=== PATIENT | female | born 1990 | race Caucasian/White ===

== ENCOUNTER 2018-02-04 17:11 | Emergency (ER) | payer BC ==
[2018-02-04 17:35] VITALS: BP 114/98; O2SAT 97
--- NOTE | 2018-02-04 17:59 | ED.PDOC ---
History of Present Illness - General Chief Complaint: [employer]CHIV[employer] Problem Stated Complaint: vaginal bleeding Time Seen by Provider: 02/04/18 17:41 Source: patient, RN notes reviewed Exam Limitations: no limitations - History of Present Illness Initial Comments: SHE IS A G2, P1, LMP ON 12/30. TODAY AT 1500 HRS SHE STARTED WITH VAGINAL BLEEDING AND WITH CRAMPS. BUT NOW THE BLEEDING HAS SUBSIDED. Timing/Duration: just prior to arrival Quality: moderate, cramping Onset Location: vaginal Radiation: suprapubic Activites at Onset: none Improving Factors: other - SPONTANEOSLY Allergies/Adverse Reactions: Allergies NO KNOWN ALLERGY Allergy (Verified 02/04/18 17:36) Home Medications: Ambulatory Orders Sertraline HCl [Zoloft] 50 mg PO DAILY #0 tab 09/05/12 Review of Systems - Review of Systems Constitutional: States: no symptoms reported EENTM: States: no symptoms reported Respiratory: States: no symptoms reported Cardiology: States: no symptoms reported Gastrointestinal/Abdominal: States: abdominal pain Genitourinary: States: other - VAGINAL BLEEDING Musculoskeletal: States: no symptoms reported Skin: States: no symptoms reported Neurological: States: no symptoms reported Hematologic/Lymphatic: States: no symptoms reported Past Medical History (General) - Patient Medical History Hx Seizures: No Hx Stroke: No Hx Dementia: No Hx Asthma: Yes Hx of COPD: No Hx Cardiac Disorders: No Hx Congestive Heart Failure: No Hx Pacemaker: No Hx Hypertension: No Hx Thyroid Disease: No Hx Diabetes: No Hx Gastroesophageal Reflux: No Hx Renal Disease: No Hx Cancer: No Hx of HIV: No Hx Hepatitis C: No Hx MRSA: No Surgical History: other - Vaccination History Hx Influenza Vaccination: No - Social History Hx Tobacco Use: Yes Hx Alcohol Use: No - Female History Patient is a Female of Child Bearing Age (10 -59 yrs old): Yes Hx Last Menstrual Period: 11/25/11 Patient : Yes Expected Date of Delivery:: 08/30/12 Family Medical History - Family History Mother Family History: Unknown Physical Exam - Physical Exam General Appearance: Alert, Well Developed, Well Groomed, Well Hydrated, Well Nourished Eyes, Ears, Nose, Throat Exam: PERRL/EOMI, normal ENT inspection, TMs normal Neck: non-tender, full range of motion, normal inspection Cardiovascular/Respiratory: regular rate, rhythm, normal peripheral pulses, no JVD, normal breath sounds Gastrointestinal/Abdominal: normal bowel sounds, soft, no organomegaly, no pulsatile mass Rectal Exam: deferred Pelvic Exam: external exam normal, other - the speculum exam has a small amount of blood in the vaginal vault. the cervix is closed. bimanual, no adnexan masses, uterues slighlty enlarged. Back Exam: normal inspection Extremity: normal range of motion, non-tender, normal inspection Neurologic: no motor/sensory deficits, alert Skin Exam: normal color Lymphatic: no adenopathy Progress - Results/Orders Results/Orders: 4 quant [facility] [place] IS 5500. WILL PERFORM AN OB SONO. 1929: ENDOVAGINAL SONOGRAM REVEALS AN INTRAUTERINE -5 WEEKS AND 2 DAYS. Departure - Departure Clinical Impression: Threatened Disposition: Discharge to Home or Self Care Condition: Good Departure Forms: ED Discharge - Pt. Copy, Patient Portal Self Enrollment Instructions: Threatened Miscarriage Referrals: Joann Alva, [employer] [Primary Care Provider] - 1-2 Weeks Home Medications: Ambulatory Orders Sertraline HCl [Zoloft] 50 mg PO DAILY #0 tab 09/05/12 Additional Instructions: BED REST, PELVIC REST. RETURN TO WORK NEXT SaturdayFEBRUARY 10
--- NOTE | 2018-02-04 19:53 | US ---
EXAM DESCRIPTION: OB ,Early (0-14wks) CLINICAL HISTORY: Vaginal Bleeding COMPARISON: FINDINGS: [Transabdominal ] [transvaginal ] images of the pelvis were submitted. Single intrauterine gestation is seen with estimated gestational age of five weeks two days, and EDC of October 06, 2018. Uterus measures 82 x 63 x 40 mm, right ovary 18 x 15 x 20 mm, left ovary 24 x 24 x 22 mm. IMPRESSION: Single IUP as above. Electronically signed by: Juancarlos Lucas 02/04/2018 7:52 PM CDT
[2018-02-04 20:20] VITALS: TEMP 98.1
== END 2018-02-04 20:20 | disposition home or self-care (01) ==
LOC: ER 17:11
DX: O20.0 Threatened abortion (principal); O99.511 Diseases of the respiratory system complicating pregnancy, first trimester; J45.909 Unspecified asthma, uncomplicated; Z3A.01 Less than 8 weeks gestation of pregnancy; Z87.891 Personal history of nicotine dependence; Z79.899 Other long term (current) drug therapy

== ENCOUNTER 2019-12-02 10:22 | Emergency (ER) | payer BC, OTHER ==
[2019-12-02] MEDS ORDERED: SODIUM CHLORIDE 0.9% 1000ML 1,000 ML IVS PRN (10:35)
[2019-12-02] MEDS ORDERED: ONDANSETRON INJ 4 MG/2 ML VIAL IV ONE (10:35)
[2019-12-02] MEDS ORDERED: SODIUM CHLORIDE 0.9% (FLUSH) 10 ML SYG IV PRN (10:35)
[2019-12-02] MEDS ORDERED: MORPHINE SULFATE INJ 10 MG/ML VIAL IV ONE (10:37)
--- NOTE | 2019-12-02 10:39 | ED.PDOC ---
History of Present Illness - General Chief Complaint: Abdominal Pain Time Seen by Provider: 12/02/19 10:27 Information Source: patient, RN notes reviewed, Vital Signs reviewed Exam Limitations: no limitations - History of Present Illness Initial Comments: Pt is a 29 yo female with no chronic medical problems that prresents to ED for lower abdominal pain, NVD since last night. States she ate a taco salad at home last night, then a few hours later symptoms developed. Has been unable to keep any po intake down today. Denies fever, but has had chills. LMP was 1 week ago. Only previous abdominal surgery was C section. Denies recent travel or sick contacts. Review of Systems - Review of Systems Constitutional: States: chills. Denies: fever, weakness EENTM: Denies: ear pain, nose congestion, throat pain Respiratory: Denies: cough, short of breath Cardiology: Denies: chest pain, edema, palpitations, syncope Gastrointestinal/Abdominal: States: abdominal pain, diarrhea, nausea, vomiting Genitourinary: Denies: dysuria, frequency Musculoskeletal: Denies: back pain, neck pain Skin: States: no symptoms reported All other Systems: Reviewed and Negative Past Medical History (General) - Patient Medical History Hx Seizures: No Hx Stroke: No Hx Dementia: No Hx Asthma: Yes Hx of COPD: No Hx Cardiac Disorders: No Hx Congestive Heart Failure: No Hx Pacemaker: No Hx Hypertension: No Hx Thyroid Disease: No Hx Diabetes: No Hx Gastroesophageal Reflux: No Hx Renal Disease: No Hx Cancer: No Hx of HIV: No Hx Hepatitis C: No Hx MRSA: No - Vaccination History Hx Influenza Vaccination: No - Social History Hx Tobacco Use: Yes Hx Alcohol Use: No - Female History Hx Last Menstrual Period: 11/25/11 Patient : Yes Expected Date of Delivery:: 08/30/12 Family Medical History - Family History Mother Family History: Unknown Physical Exam - Physical Exam General Appearance: Alert, Comfortable Eyes, Ears, Nose, Throat Exam: pharynx normal Neck: non-tender, full range of motion, supple Respiratory: chest non-tender, lungs clear, normal breath sounds, no respiratory distress Cardiovascular/Chest: regular rate, rhythm, no edema, no murmur Gastrointestinal/Abdominal: other - Soft, TTP bilateral lower quadrants. No guarding or rigidity Back Exam: no CVA tenderness, no vertebral tenderness Extremity: non-tender, normal inspection, no calf tenderness Neurologic: no motor/sensory deficits, alert, normal mood/affect Progress - Progress Progress: 12/02/19 12:18 Pt presents to ED for abdominal pain with NVD since last night. CT ordered to evaluate for infectious cause. Shows possible abnormality of gastric lining. Will treat with PPI for possible ulcer and f/u with GI for endoscopic evaluation. Pt pain and nausea controlled and tolerating po fluids well. Feels comfortable going home and will f/u with PCP in 1-2 days and GI. SRP given. - Results/Orders Results/Orders: CT Abdomen/Pelvis IMPRESSION: 1. Mild hepatic enlargement slightly increased compared to the prior study. Otherwise unremarkable. 2. Change in contour of the of the posterior gastric fundus which appears exophytic but no wall thickening or inflammatory changes. Not seen on the prior study. Correlate for clinical findings. 3. New 2 mm radiodense stone, nonobstructing, in the mid left collecting system. Right renal cyst. Ureters and urinary bladder unremarkable. 12/02/19 10:35 Sodium Chloride 0.9% (Flush) [Saline Flush Syringe] 10 ml IV PRN PRN Sodium Chloride 0.9% 1000ML [Ns 1000 ml] 1,000 ml IVS .QD 12/02/19 10:36 Hold Metformin x 48Hrs [id number] IV Care:Saline Lock per Protoc QSHIFT Laboratory Results - last 24 hr 12/02/19 12/02/19 12/02/19 10:45 10:45 10:45 WBC 9.6 RBC 5.17 Hgb 14.8 Hct 44.9 MCV 86.9 MCH 28.6 MCHC 32.9 L RDW 13.1 Plt Count 275 MPV 8.9 Absolute Neuts (auto) 8.40 H Absolute Lymphs (auto) 0.90 L Absolute Monos (auto) 0.20 Absolute Eos (auto) 0.00 Absolute Basos (auto) 0.10 Neutrophils % 87.3 H Lymphocytes % 9.7 L Monocytes % 2.4 Eosinophils % 0.1 L Basophils % 0.5 Sodium Potassium Chloride Carbon Dioxide Anion Gap BUN Creatinine BUN/Creatinine Ratio Random Glucose Serum Osmolality Calcium Total Bilirubin AST ALT Alkaline Phosphatase Serum Total Protein Albumin Globulin Albumin/Globulin Ratio Lipase 28 Serum HCG, Qual Negative Urine Color Urine Appearance Urine pH Ur Specific [place] Urine Protein Urine Glucose (UA) Urine Ketones Urine Blood Urine Nitrite Urine Bilirubin Urine Urobilinogen Ur Leukocyte Esterase Urine RBC Urine WBC Ur Epithelial Cells Amorphous Sediment Urine Bacteria 12/02/19 12/02/19 10:45 11:40 WBC RBC Hgb Hct MCV MCH MCHC RDW Plt Count MPV Absolute Neuts (auto) Absolute Lymphs (auto) Absolute Monos (auto) Absolute Eos (auto) Absolute Basos (auto) Neutrophils % Lymphocytes % Monocytes % Eosinophils % Basophils % Sodium 140 Potassium 3.4 L Chloride 107 Carbon Dioxide 18 L Anion Gap 18.4 H BUN 15 Creatinine 0.82 BUN/Creatinine Ratio 18.3 Random Glucose 161 H Serum Osmolality 283.7 Calcium 9.5 Total Bilirubin 0.6 AST 36 ALT 18 Alkaline Phosphatase 79 Serum Total Protein 7.9 Albumin 4.7 Globulin 3.2 Albumin/Globulin Ratio 1.5 Lipase Serum HCG, Qual Urine Color Yellow Urine Appearance Clear Urine pH >= 9.0 H* Ur Specific [place] 1.010 Urine Protein 30 Urine Glucose (UA) Negative Urine Ketones 15 H Urine Blood Negative Urine Nitrite Negative Urine Bilirubin Negative Urine Urobilinogen 0.2 Ur Leukocyte Esterase Negative Urine RBC 0 Urine WBC 0 Ur Epithelial Cells 3-5 Amorphous Sediment 1+ Urine Bacteria 0 Departure - Departure Clinical Impression: Gastroenteritis Abdominal pain Qualifiers: Abdominal location: generalized Qualified Code(s): R10.84 - Generalized abdominal pain Time of Disposition: 12:21 Disposition: Discharge to Home or Self Care Condition: Good Departure Forms: ED Discharge - Pt. Copy, Patient Portal Self Enrollment Instructions: DI for Abdominal Pain-Adult Diet: bland diet Activity: increase activity as tolerated Referrals: Joann Alva NP [Primary Care Provider] - 1-2 Days Prescriptions: Ondansetron HCl [Zofran] 4 mg PO Q6HR PRN #15 tab PRN Reason: Nausea Acetaminophen W/ Codeine [Tylenol W/ CODEINE #3] 1 tablet PO Q6H PRN #20 PRN Reason: Pain Omeprazole Magnesium [Prilosec Otc] 20 mg PO DAILY #14 tab Home Medications: Ambulatory Orders Sertraline HCl [Zoloft] 50 mg PO DAILY #0 tab 09/05/12 Acetaminophen W/ Codeine [Tylenol W/ CODEINE #3] 1 tablet PO Q6H PRN #20 12/02/19 Omeprazole Magnesium [Prilosec Otc] 20 mg PO DAILY #14 tab 12/02/19 Ondansetron HCl [Zofran] 4 mg PO Q6HR PRN #15 tab 12/02/19
--- NOTE | 2019-12-02 12:09 | CT ---
EXAM DESCRIPTION: Abdomen/Pelvis w/Contrast: Computed Tomography. CLINICAL HISTORY: 29 years Female lower abd pain and vomiting COMPARISON: Abdominal pelvic CT scan October 2009. TECHNIQUE: Spiral-axial scans at 5 x 5 mm intervals through the abdomen and pelvis, after nonionic IV contrast without oral contrast. Axial 2.5 mm reconstructions. Coronal and sagittal 2.0 mm reconstructions. No adverse reactions. Total Exam DLP: 563 mGy-cm. This exam was performed according to our departmental dose-optimization program which includes automated exposure control, adjustment of the mA and/or kV according to patient size and/or use of iterative reconstruction technique; to reduce radiation dose to as low as reasonably achievable (ALARA). FINDINGS: Lung bases and pleura: Negative. Liver, Stomach, Spleen, Adrenal Glands: Long axis right hepatic lobe 19.3 cm. Unusual contour of the posterior fundus of the stomach extending posteriorly in superiorly into the hemidiaphragm with no mass or fatty inflammatory changes or free air. Pancreas, Gallbladder, Ducts: Unremarkable. Kidneys and Ureters: 2 mm radiodense stone in the mid- lower left renal collecting system. Subcentimeter cyst in the upper right kidney. Kidneys and ureters otherwise negative. Mesentery: Negative. Aorta: Unremarkable. Small Bowel: Negative. Terminal Ileum/Cecum: Unremarkable. Appendix not well seen. No inflammatory changes. Colon: Normal caliber throughout. Pelvic Organs: Small urinary bladder with no radiodense stones. Normal position of the uterus. Small calcification to the left of the cervix and in the connective tissue between the vagina and rectum. No change from the prior study. Spine and Bony Pelvis: Unremarkable. Abdominal Wall/Back Soft Tissues: Negative. IMPRESSION: 1. Mild hepatic enlargement slightly increased compared to the prior study. Otherwise unremarkable. 2. Change in contour of the of the posterior gastric fundus which appears exophytic but no wall thickening or inflammatory changes. Not seen on the prior study. Correlate for clinical findings. 3. New 2 mm radiodense stone, nonobstructing, in the mid left collecting system. Right renal cyst. Ureters and urinary bladder unremarkable. Electronically signed by: Juancarlos Ortez MD 12/02/2019 12:08 PM CDT
[2019-12-02 12:10] VITALS: BP 108/68
[2019-12-02 12:33] VITALS: TEMP 98.1; O2SAT 95
== END 2019-12-02 12:32 | disposition home or self-care (01) ==
LOC: ER 10:22
DX: K52.9 Noninfective gastroenteritis and colitis, unspecified (principal); R10.84 Generalized abdominal pain
CPT/HCPCS: 36415; 74177; 80053; 81001; 83690; 84703; 85025; J2270; J2405; J7030

== ENCOUNTER → 2020-01-22 | Outpatient (CLI) | payer OTHER | LOC: YCFC.O 16:45 | PROVIDERS: ATTEND Nurse Practitioner | DX: Z02.0 Encounter for examination for admission to educational institution (principal) ==